=== PATIENT | female | born 2000 | race Caucasian/White ===

== ENCOUNTER 2024-09-19 13:44 | Emergency (ER) | payer BC ==
[~2024-09-19] VITALS: Ht 160 cm; Wt 50.0 kg
[2024-09-19 13:51] VITALS: TEMP 98.6; O2SAT 100
[2024-09-19] MEDS ORDERED: IBUPROFEN 400MG TABLET PO ONE (16:00)
[2024-09-19 17:35] VITALS: BP 138/97; PULSE 66; RESP 16; O2SAT 100
[2024-09-19 17:37] LABS: BASOPHILS % 0.9 % (0.0-2.0); DIFFERENTIAL COMMENT 0; EOSINOPHILS % 0.9 % (0.0-5.0); HEMATOCRIT. 40.4 % (36.0-48.0); HEMOGLOBIN. 12.9 g/dL (12.0-16.0); LYMPHOCYTES % 51.6 % (20.0-50.0); MEAN CORPUSCULAR HEMOGLOBIN 28.1 pg (28.0-32.0); MEAN CORPUSCULAR VOLUME 87.8 fL (81.0-99.0); MEAN PLATELET VOLUME 9.9 fl (7.4-10.4); MONOCYTES % 5.7 % (2.0-8.0); NEUTROPHILS % 40.9 % (40.0-76.0); PLATELET 201 x1000/uL (130-400); RED CELL DISTRIBUTION WIDTH 12.5 % (11.6-14.6); WHITE BLOOD COUNT 5.2 x1000/uL (4.5-11.0)
[2024-09-19] MEDS: IBUPROFEN 400MG TABLET PO NR (17:40)
[2024-09-19 18:18] LABS: CHLORIDE 105 mEq/L (98-107); POTASSIUM 3.5 mEq/L (3.5-5.1); SODIUM 138 mEq/L (136-145)
[2024-09-19 18:19] LABS: CARBON DIOXIDE 25 mEq/L (21-32)
[2024-09-19 18:20] LABS: CALCIUM 9.7 mg/dL (8.7-10.4)
[2024-09-19 18:25] LABS: CREATININE 0.7 mg/dL (0.6-1.0); GLUCOSE 93 mg/dL (70-105)
[2024-09-19 18:28] LABS: TROPONIN I HIGH SENSITIVITY < 4 ng/L (3.0-34); UREA NITROGEN BLOOD < 5 mg/dL (9-23)
[2024-09-19] MEDS ORDERED: IBUP-2028 MT (19:23)
== END 2024-09-19 21:39 | disposition home or self-care (01) ==
LOC: ER 14:01
DX: R07.89 Other chest pain (principal); N64.4 Mastodynia
CPT/HCPCS: 36415; 71045; 80048; 81025; 84484; 85025; 85379; 93005; 99285